=== PATIENT | male | born 1975 | race African-American/Black ===

== ENCOUNTER 2016-11-29 15:13 | Inpatient (IN) | payer MEDICARE, OTHER ==
[~2016-11-29] VITALS: Ht 170.2 cm; Wt 77.1 kg
[2016-11-29] MEDS ORDERED: Z GUARD REMEDY PASTE 57 GM TUBE TOP PRN (18:00)
--- NOTE | 2016-11-29 18:00 | NUR ---
pt received from [facility]. transported by EMT. received report from Emt. pt vital signs stable. pt was alert and oriented x3. NIHSS assessment. done. pt has severe weakness on left side of the body. pt came in with an abduction pillow. pt responds to conversations but at a slower pace. pt had no signs of acute distress. med recon done. pt assessed by Jaspal. will continue to monitor for distress.
[2016-11-29] MEDS ORDERED: LEVE500T20 PO (18:30)
[2016-11-29] MEDS ORDERED: METO25TA6 PO (18:30)
[2016-11-29] MEDS ORDERED: FLUD0.1T PO (18:30)
[2016-11-29] MEDS ORDERED: GABA-534 PO (18:30)
[2016-11-29] MEDS ORDERED: MAGN400T26 PO (18:30)
[2016-11-29] MEDS ORDERED: BACL10TA PO (18:30)
[2016-11-29] MEDS ORDERED: ZONI100C6 PO (18:30)
[2016-11-29] MEDS ORDERED: SERT100T12 PO (18:30)
[2016-11-29] MEDS ORDERED: PANT40TA4 PO (18:30)
[2016-11-29] MEDS ORDERED: CALC500T3 PO (18:30)
[2016-11-29] MEDS ORDERED: ENOX40DI9 SQ (18:53)
[2016-11-29] MEDS ORDERED: RISP0.5T20 PO (18:53)
[2016-11-29] MEDS ORDERED: ACET-2154 PO (18:53)
[2016-11-29] MEDS ORDERED: ZOLP5TAB8 PO (18:53)
[2016-11-29] MEDS ORDERED: MAGN30OR PO (18:53)
[2016-11-29] MEDS ORDERED: ATOR20TA PO (18:53)
[2016-11-29] MEDS ORDERED: MAG30ORA GT (18:53)
[2016-11-29] MEDS ORDERED: HYDR-552 PO (18:53)
--- NOTE | 2016-11-29 19:00 | NUR ---
Received report from COMFORT Lehman. Received patient sitting in bed. Patient is alert and verbally responsive. Response is a little delayed. Needs additional time, but able to hold conversation and make needs known. Denies any pain and discomfort at this time. No acute distress. No SOB. Patient is on room air. Patient s/p Right Hip ORIF. Dressing is dry and intact. No c/o pain at site. Left sided noted with severe weakness. Left lower extremity noted with slight non-pitting edema. Pedal pulse present on both extremities. Abductor pillow in place between legs. Educated pt. to keep pillow there at all times. Verbalizes understanding. SCD pumps on both extremities. Kept clean and dry. All needs attended to promptly. Call light within reach. Will continue to monitor.
[2016-11-29] MEDS ORDERED: HYDROCODONE/APAP 5-325MG TABLET PO ONE (19:23)
[2016-11-29] MEDS ORDERED: HYDROCODONE/APAP 5-325MG TABLET PO PRN (19:30)
[2016-11-29] MEDS ORDERED: ACETAMINOPHEN 325 MG TABLET PO PRN (19:30)
[2016-11-29 20:30] VITALS: BP 125/90
[2016-11-29] MEDS ORDERED: risperiDONE 0.5 MG TABLET PO SCH (21:00)
[2016-11-29] MEDS: GABAPENTIN 300 MG CAPSULE PO SCH (21:35)
[2016-11-29] MEDS: ATORVASTATIN 20 MG TABLET PO SCH (21:36)
[2016-11-29] MEDS: BACLOFEN 10 MG TABLET PO SCH (21:36)
[2016-11-29] MEDS: METOPROLOL TARTRATE 25 MG TABLET PO SCH (21:37)
[2016-11-29] MEDS: risperiDONE 0.25 MG TABLET PO SCH (21:38)
[2016-11-29] MEDS: LEVETIRACETAM 500 MG TABLET PO SCH (21:39)
--- NOTE | 2016-11-30 06:00 | NUR ---
Patient is awake at this time. Slept comfortably through out the night. Denies any pain and discomfort at this time. No acute distress. No SOB. Kept clean and dry. All needs attended to promptly. Call light within reach. Will continue to monitor.
[2016-11-30] MEDS: PANTOPRAZOLE SODIUM 40 MG TABLET.DR PO SCH (06:34)
--- NOTE | 2016-11-30 07:27 | NUR ---
Dressing changed. Cleansed wit normal saline, pat dry and applied dry dressing. Suture intact. No s/s of bleeding or swelling. No c/o pain and discomfort. No acute distress. All needs attended to promptly. Call light within reach. Will continue to monitor.
[2016-11-30 08:00] VITALS: BP 122/82
--- NOTE | 2016-11-30 08:00 | NUR ---
Pt alert and oriented and able to verbalize needs. AM care done. AM medication given. pt requested to get a multivitamin. SENIOR OFFICER informed and ordered mutivitamins 1 tab daily. Vitamin given to the patient, tolerating well. pt denies pain and discomfort. breathing equal and unlabored.
[2016-11-30 08:23] LABS: BASOPHILS % (AUTO) 0.3 % (0.0-2.0); EOSINOPHILS # (AUTO) 0.2 K/uL (0.0-0.7); EOSINOPHILS % (AUTO) 2.6 % (0.0-7.0); HEMATOCRIT 33.1 % (40-50); LYMPHOCYTES # (AUTO) 1.1 K/UL (0.8-4.8); LYMPHOCYTES % (AUTO) 17.8 % (20.5-51.5); MEAN CORPUSCULAR HEMOGLOBIN 32.1 UUG (27.0-31.0); MEAN CORPUSCULAR HGB CONC 36 g/dL (32.0-37.0); MEAN CORPUSCULAR VOLUME 88.9 FL (82.0-92.0); MONOCYTES # (AUTO) 0.5 K/UL (0.1-1.30); MONOCYTES % (AUTO) 7.3 % (0.0-11.0); NEUTROPHILS # (AUTO) 4.6 K/UL (1.8-8.9); PLATELET COUNT (AUTO) 141 K/UL (150-450); RED BLOOD CELL COUNT(AUTO) 3.72 MIL/UL (4.7-6.1); WHITE BLOOD COUNT (AUTO) 6.4 K/UL (4.0-11.2)
[2016-11-30] MEDS: ENOXAPARIN SODIUM 40 MG/0.4 ML DISP.SYRIN SQ SCH (08:24)
[2016-11-30] MEDS: SERTRALINE HCL 50 MG TABLET PO SCH (08:25)
[2016-11-30] MEDS: MAGNESIUM OXIDE 400 MG TABLET PO SCH ×2 (08:26→18:18)
[2016-11-30] MEDS: BACLOFEN 10 MG TABLET PO SCH ×4 (08:27→21:53)
[2016-11-30] MEDS: GABAPENTIN 300 MG CAPSULE PO SCH ×3 (08:27→17:02)
[2016-11-30] MEDS: LEVETIRACETAM 500 MG TABLET PO SCH ×2 (08:27→21:52)
[2016-11-30 08:30] LABS: CREATININE 1.1 mg/dL (0.6-1.3); MAGNESIUM 1.8 mg/dL (1.8-2.4); PHOSPHOROUS 2.1 mg/dL (2.5-4.9); POTASSIUM 3.3 mmol/L (3.5-5.1)
[2016-11-30] MEDS: METOPROLOL TARTRATE 25 MG TABLET PO SCH ×2 (08:31→21:54)
[2016-11-30] MEDS ORDERED: GABAPENTIN 300 MG CAPSULE PO SCH (09:00)
[2016-11-30] MEDS ORDERED: SERTRALINE HCL 100 MG TABLET PO SCH (09:00)
[2016-11-30] MEDS: FLUDROCORTISONE ACETATE 0.1 MG TABLET PO SCH ×2 (09:52→17:03)
[2016-11-30] MEDS: MULTIVITAMINS,THERAPEUTIC TABLET PO SCH (09:52)
--- NOTE | 2016-11-30 10:36 | NUR ---
Abnormal Labs Spoke with MD Osbrone regarding patient abnormal labs. No new order received.
[2016-11-30] MEDS ORDERED: POTASSIUM CHLORIDE 20 MEQ TAB.PRT.SR PO ONE (11:30)
--- NOTE | 2016-11-30 13:59 | NUR ---
Ip Network Architect SW met with patient at [facility] to assess pt needs and provide support. The patient is a 41 year old [place]ian male admitted for right hip fracture. The patient was laying in his bed during the assessment. He was calm and cooperative during the interview. The patient's mood was somewhat depressed with a flat affect. Per pt, he lives at [facility] [[address] [place] [id number] ] and has been living there for the past 3 years. The patient acknowledged his condition and the need for intervention. The patient stated that he fell and fractured his hip. The patient stated that he has strong social support from his girlfriend Gail Grullon . SW called patient's girlfriend however the phone was busy. SW will attempt to contact pt gf at a later time. Social history: The patient stated that he was born in [facility] and was raised in the [facility]. He stated that his parents both of natural causes when he was very young and that he was raised by his godmother. The patient has a high school diploma. 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 The patient has never been but has been in a relationship with his girlfriend for 6 years. He does not have any children. The patient stated that his goal is to be able to walk again after completing his treatment at [facility] and then return to his assisted living. SW engaged in active listening and provided supportive counseling during the interview to address patient's issues of loss due to his recent fall and inability to walk. SW will continue to address issues of loss related to recent fall. SW will encourage compliance with rehab goals. SW will be available as needed.
[2016-11-30] MEDS ORDERED: NEUTRA PHOS PACKET PO ONE (16:00)
[2016-11-30 16:02] VITALS: BP 125/83
--- NOTE | 2016-11-30 20:00 | NUR ---
Patient received resting comfortably in bed, no acute distress noted. Dressing noted to right hip, intact. Observed to be slow to process, although able to make needs known. No c/o pain. No acute distress noted. Bed in low and locked position, call light within reach.
[2016-11-30 21:08] VITALS: BP 121/93
[2016-11-30] MEDS: ATORVASTATIN 20 MG TABLET PO SCH (21:53)
[2016-11-30] MEDS: risperiDONE 0.25 MG TABLET PO SCH (21:53)
--- NOTE | 2016-11-30 23:00 | NUR ---
patient compliant with bedtime medications. Pt changed by staff. No acute distress noted. Will continue to monitor fro safety.
[2016-12-01] MEDS: PANTOPRAZOLE SODIUM 40 MG TABLET.DR PO SCH (06:39)
[2016-12-01 08:49] VITALS: BP 129/89
[2016-12-01] MEDS: MULTIVITAMINS,THERAPEUTIC TABLET PO SCH (09:07)
[2016-12-01] MEDS: BACLOFEN 10 MG TABLET PO SCH ×4 (09:07→20:42)
[2016-12-01] MEDS: GABAPENTIN 300 MG CAPSULE PO SCH ×3 (09:07→16:08)
[2016-12-01] MEDS: MAGNESIUM OXIDE 400 MG TABLET PO SCH ×2 (09:08→16:08)
[2016-12-01] MEDS: SERTRALINE HCL 50 MG TABLET PO SCH (09:08)
[2016-12-01] MEDS: LEVETIRACETAM 500 MG TABLET PO SCH ×2 (09:08→20:41)
[2016-12-01] MEDS: METOPROLOL TARTRATE 25 MG TABLET PO SCH ×2 (09:09→20:43)
[2016-12-01] MEDS: FLUDROCORTISONE ACETATE 0.1 MG TABLET PO SCH ×2 (09:12→16:08)
[2016-12-01] MEDS: ENOXAPARIN SODIUM 40 MG/0.4 ML DISP.SYRIN SQ SCH (09:12)
[2016-12-01 18:11] VITALS: BP 141/95
--- NOTE | 2016-12-01 19:30 | NUR ---
PT ALERT AND ORIENTED IN BED. NO DISTRESS NOTED. COMPLIANT WITH NURSING CARE. CLEAN AND DRY. TURNED AND REPOSITIONED. WILL CONTINUE TO MONITOR.
[2016-12-01 20:38] VITALS: BP 130/94
[2016-12-01] MEDS: ATORVASTATIN 20 MG TABLET PO SCH (20:41)
[2016-12-01] MEDS: ZOLPIDEM 5 MG TABLET PO PRN (20:42)
[2016-12-01] MEDS: risperiDONE 0.25 MG TABLET PO SCH (20:43)
[2016-12-02] MEDS: PANTOPRAZOLE SODIUM 40 MG TABLET.DR PO SCH (06:40)
--- NOTE | 2016-12-02 07:07 | NUR ---
PT RESTING IN BED. NO DISTRESS NOTED. NO SIGNIFICANT CHANGES THROUGHOUT THE NIGHT. TURNED AND REPOSITIONED Q2. CLEAN AND DRY. SAFETY MAINTAINED. CALL LIGHT WITHIN REACH.
[2016-12-02 08:00] VITALS: BP 120/86
[2016-12-02] MEDS: MULTIVITAMINS,THERAPEUTIC TABLET PO SCH (08:36)
[2016-12-02] MEDS: FLUDROCORTISONE ACETATE 0.1 MG TABLET PO SCH ×2 (08:38→17:30)
[2016-12-02] MEDS: GABAPENTIN 300 MG CAPSULE PO SCH ×3 (08:38→17:29)
[2016-12-02] MEDS: BACLOFEN 10 MG TABLET PO SCH ×4 (08:38→20:59)
[2016-12-02] MEDS: MAGNESIUM OXIDE 400 MG TABLET PO SCH ×2 (08:39→17:29)
[2016-12-02] MEDS: LEVETIRACETAM 500 MG TABLET PO SCH ×2 (08:39→20:58)
[2016-12-02] MEDS: SERTRALINE HCL 50 MG TABLET PO SCH (08:42)
[2016-12-02] MEDS: ENOXAPARIN SODIUM 40 MG/0.4 ML DISP.SYRIN SQ SCH (08:44)
[2016-12-02] MEDS: METOPROLOL TARTRATE 25 MG TABLET PO SCH ×2 (08:45→21:00)
--- NOTE | 2016-12-02 09:15 | NUR ---
RECEIVED PATIENT AWAKE IN BED. ALERT AND ORIENTED X4. NO S/S OF DISTRESS. PATIENT COMPLAINED OF HEADACHE. PRN PAIN MEDICATIONS GIVEN. TOLERATED THERAPY WELL. ENSURED SAFETY. CALL LIGHT WITHIN REACH
--- NOTE | 2016-12-02 12:10 | NUR ---
PATIENT BACK TO ROOM IN STABLE CONDITION,AWAKE, ALERT AND ORIENTED. NO COMPLAINTS OF PAIN OR DISCOMFORT. INSTRUCTED PATIENT TO MAINTAIN NPO STATUS UNTIL 22:00 TODAY. IV FLUID OF D5NS 75CC./HR. STARTED. IV SITE OVER LEFT WRIST. IV PATENT AND INFUSING WELL. Addendum: 12/02/16 at 1306 by TEODORO TINSLEY RN WRONG PATIENT FOR PATIENT LISSETTE CRAIG
--- NOTE | 2016-12-02 19:30 | NUR ---
Received patient awake, resting in bed with no s/s of distress. Denies pain at this time. Call light within reach. Will continue to monitor.
[2016-12-02 20:00] VITALS: BP 136/90
[2016-12-02] MEDS: ZOLPIDEM 5 MG TABLET PO PRN (20:59)
[2016-12-02] MEDS: ATORVASTATIN 20 MG TABLET PO SCH (20:59)
[2016-12-02] MEDS: risperiDONE 0.25 MG TABLET PO SCH (20:59)
[2016-12-03] MEDS: PANTOPRAZOLE SODIUM 40 MG TABLET.DR PO SCH (06:06)
--- NOTE | 2016-12-03 06:31 | NUR ---
Patient awake in bed, respirations even and unlabored. No complaints of pain during the shift. Due meds given. Needs attended. Dressing on incision site cleansed and changed. Kept clean and dry. Call light kept within reach. Frequent checks done. Endorsed accordingly.
[2016-12-03 08:00] VITALS: BP 130/94
--- NOTE | 2016-12-03 08:00 | NUR ---
RECEIVED PATIENT AWAKE IN BED. NO S/S OF DISTRESS NO COMPLAINTS OF PAIN AT THIS TIME. CALL LIGHT WITHIN REACH. WILL CONTINUE TO MONITOR.
[2016-12-03] MEDS: LEVETIRACETAM 500 MG TABLET PO SCH ×2 (08:56→21:58)
[2016-12-03] MEDS: BACLOFEN 10 MG TABLET PO SCH ×4 (08:56→21:59)
[2016-12-03] MEDS: GABAPENTIN 300 MG CAPSULE PO SCH ×3 (08:57→17:16)
[2016-12-03] MEDS: METOPROLOL TARTRATE 25 MG TABLET PO SCH ×2 (08:57→21:59)
[2016-12-03] MEDS: MAGNESIUM OXIDE 400 MG TABLET PO SCH ×2 (08:57→17:16)
[2016-12-03] MEDS: MULTIVITAMINS,THERAPEUTIC TABLET PO SCH (08:57)
[2016-12-03] MEDS: FLUDROCORTISONE ACETATE 0.1 MG TABLET PO SCH ×2 (08:58→17:16)
[2016-12-03] MEDS: SERTRALINE HCL 50 MG TABLET PO SCH (08:58)
[2016-12-03] MEDS: ENOXAPARIN SODIUM 40 MG/0.4 ML DISP.SYRIN SQ SCH (08:59)
--- NOTE | 2016-12-03 10:41 | NUR ---
TRANSFERRED PATIENT TO ROOM 105. ORIENTED TO ROOM SET-UP. TOLERATED THERAPY WELL. ENCOURAGED TO VERBALIZE NEEDS. NO COMPLAINTS OF DISCOMFORT AT THIS TIME.
[2016-12-03] MEDS: ZONISAMIDE 100 MG CAPSULE PO SCH (16:29)
--- NOTE | 2016-12-03 19:00 | NUR ---
Pt in bed, no distress noted. call light within reach.
[2016-12-03 20:57] VITALS: BP 133/90
[2016-12-03] MEDS: risperiDONE 0.25 MG TABLET PO SCH (21:58)
[2016-12-03] MEDS: ATORVASTATIN 20 MG TABLET PO SCH (21:58)
--- NOTE | 2016-12-03 23:09 | NUR ---
Received patient resting in bed with no s/s of distress. No complaints of pain at this time. Call light within reach. Will continue to monitor.
[2016-12-04] MEDS: PANTOPRAZOLE SODIUM 40 MG TABLET.DR PO SCH (06:13)
--- NOTE | 2016-12-04 06:53 | NUR ---
Patient went back to sleep after taking AM meds. Manifested a pleasant disposition. Incontinence care done. Kept clean, dry, comfortable. No s/s of distress. No complaints of pain. Call light kept within reach. Endorsed accordingly.
[2016-12-04 08:00] VITALS: BP 121/84
[2016-12-04] MEDS: MULTIVITAMINS,THERAPEUTIC TABLET PO SCH (08:31)
[2016-12-04] MEDS: LEVETIRACETAM 500 MG TABLET PO SCH ×2 (08:32→20:49)
[2016-12-04] MEDS: MAGNESIUM OXIDE 400 MG TABLET PO SCH ×2 (08:33→17:03)
[2016-12-04] MEDS: FLUDROCORTISONE ACETATE 0.1 MG TABLET PO SCH ×2 (08:34→17:02)
[2016-12-04] MEDS: CALCIUM CARBONATE 500 MG TABLET PO SCH (08:34)
[2016-12-04] MEDS: GABAPENTIN 300 MG CAPSULE PO SCH ×3 (08:34→17:12)
[2016-12-04] MEDS: BACLOFEN 10 MG TABLET PO SCH ×4 (08:34→20:47)
[2016-12-04] MEDS: METOPROLOL TARTRATE 25 MG TABLET PO SCH ×2 (08:35→20:48)
[2016-12-04] MEDS: SERTRALINE HCL 50 MG TABLET PO SCH (08:35)
[2016-12-04] MEDS: ZONISAMIDE 100 MG CAPSULE PO SCH (08:40)
[2016-12-04] MEDS: ENOXAPARIN SODIUM 40 MG/0.4 ML DISP.SYRIN SQ SCH (08:45)
[2016-12-04] MEDS ORDERED: ZONISAMIDE 100 MG CAPSULE PO SCH (09:00)
--- NOTE | 2016-12-04 10:01 | NUR ---
ST states that the patient refuses swallow eval. pt shows no complications during chief media officer. will continue to reassess for further complications.
--- NOTE | 2016-12-04 17:57 | NUR ---
pt had no acute distress during sfhit. pt took meds without complications. pt still refused evaluation for speech therapy. pt skin stayed intact. loc remained constant throughout shift. no changes on motor and sensory functions. vitals stable. pt had no bm during shift. . pt continued to work with PT and ot. no pertinent labs during shift. will endorse pt on continuing reassessment.
[2016-12-04] MEDS: ATORVASTATIN 20 MG TABLET PO SCH (20:47)
[2016-12-04] MEDS: risperiDONE 0.25 MG TABLET PO SCH (20:48)
[2016-12-04 21:50] VITALS: BP 117/79
[2016-12-05] MEDS: PANTOPRAZOLE SODIUM 40 MG TABLET.DR PO SCH (06:31)
--- NOTE | 2016-12-05 06:42 | NUR ---
Patient is awake and verbally responsive. Slept comfortably throughout the night. Denies any pain and discomfort at this time. No acute distress. No SOB. Kept clean and dry. AM medications given. SCD pump on throughout the night. Abductor pillow in place. All needs attended to promptly. Call light within reach. Will continue to monitor.
[2016-12-05 08:11] LABS: BASOPHILS % (AUTO) 0.7 % (0.0-2.0); EOSINOPHILS # (AUTO) 0.1 K/uL (0.0-0.7); EOSINOPHILS % (AUTO) 1.6 % (0.0-7.0); HEMATOCRIT 35.8 % (40-50); HEMOGLOBIN 12.7 G/DL (14.0-18.0); LYMPHOCYTES # (AUTO) 1.3 K/UL (0.8-4.8); LYMPHOCYTES % (AUTO) 18.6 % (20.5-51.5); MEAN CORPUSCULAR HEMOGLOBIN 31.8 UUG (27.0-31.0); MEAN CORPUSCULAR HGB CONC 36 g/dL (32.0-37.0); MEAN CORPUSCULAR VOLUME 89.7 FL (82.0-92.0); MONOCYTES # (AUTO) 0.3 K/UL (0.1-1.30); MONOCYTES % (AUTO) 4.4 % (0.0-11.0); NEUTROPHILS # (AUTO) 5.4 K/UL (1.8-8.9); NEUTROPHILS % (AUTO) 74.7 % (38.5-71.5); WHITE BLOOD COUNT (AUTO) 7.1 K/UL (4.0-11.2)
[2016-12-05 08:19] LABS: PLATELET COUNT (AUTO) 250 K/UL (150-450)
[2016-12-05 08:28] VITALS: BP 121/77
[2016-12-05] MEDS: CALCIUM CARBONATE 500 MG TABLET PO SCH (08:40)
[2016-12-05] MEDS: MULTIVITAMINS,THERAPEUTIC TABLET PO SCH (08:40)
[2016-12-05] MEDS: BACLOFEN 10 MG TABLET PO SCH ×2 (08:40→12:11)
[2016-12-05] MEDS: LEVETIRACETAM 500 MG TABLET PO SCH ×2 (08:41→21:37)
[2016-12-05] MEDS: MAGNESIUM OXIDE 400 MG TABLET PO SCH ×2 (08:41→17:21)
[2016-12-05] MEDS: SERTRALINE HCL 50 MG TABLET PO SCH (08:42)
[2016-12-05] MEDS: METOPROLOL TARTRATE 25 MG TABLET PO SCH ×2 (08:43→21:36)
[2016-12-05] MEDS: ZONISAMIDE 100 MG CAPSULE PO SCH (08:43)
[2016-12-05] MEDS: GABAPENTIN 300 MG CAPSULE PO SCH ×3 (08:43→17:21)
[2016-12-05] MEDS: FLUDROCORTISONE ACETATE 0.1 MG TABLET PO SCH ×2 (08:43→17:21)
[2016-12-05] MEDS: ENOXAPARIN SODIUM 40 MG/0.4 ML DISP.SYRIN SQ SCH (08:44)
[2016-12-05 09:39] LABS: BILIRUBIN,TOTAL 0.5 mg/dL (0.2-1.0); CREATININE 1.2 mg/dL (0.6-1.3); PHOSPHOROUS 3.4 mg/dL (2.5-4.9); POTASSIUM 3.8 mmol/L (3.5-5.1); TOTAL PROTEIN, SERUM 7.2 g/dL (6.4-8.2)
[2016-12-05] MEDS ORDERED: BISACODYL 10 MG SUPP.RECT RC PRN (10:45)
--- NOTE | 2016-12-05 16:24 | NUR ---
IDT MEETING 12/05/16
[2016-12-05] MEDS: BACLOFEN 20 MG TABLET PO SCH ×2 (17:56→21:37)
[2016-12-05] MEDS: DOCUSATE SODIUM 100 MG CAPSULE PO SCH (21:00)
[2016-12-05] MEDS: ATORVASTATIN 20 MG TABLET PO SCH (21:36)
[2016-12-05] MEDS: risperiDONE 0.25 MG TABLET PO SCH (21:37)
[2016-12-05] MEDS: ZOLPIDEM 5 MG TABLET PO PRN (21:41)
[2016-12-05 22:08] VITALS: BP 127/89
[2016-12-06] MEDS: PANTOPRAZOLE SODIUM 40 MG TABLET.DR PO SCH (06:33)
[2016-12-06] MEDS: BACLOFEN 20 MG TABLET PO SCH ×3 (06:33→21:04)
--- NOTE | 2016-12-06 07:10 | NUR ---
Patient is awake and verbally responsive. Able to make needs known. Slept comfortably throughout the night. No c/o pain and discomfort. No acute distress. No SOB. All needs attended to promptly. Call light within reach. Will continue to monitor.
[2016-12-06 08:13] VITALS: BP 125/82
[2016-12-06] MEDS: MULTIVITAMINS,THERAPEUTIC TABLET PO SCH (09:09)
[2016-12-06] MEDS: LEVETIRACETAM 500 MG TABLET PO SCH ×2 (09:10→21:06)
[2016-12-06] MEDS: SERTRALINE HCL 50 MG TABLET PO SCH (09:11)
[2016-12-06] MEDS: METOPROLOL TARTRATE 25 MG TABLET PO SCH ×2 (09:12→21:12)
[2016-12-06] MEDS: FLUDROCORTISONE ACETATE 0.1 MG TABLET PO SCH ×2 (09:13→17:33)
[2016-12-06] MEDS: MAGNESIUM OXIDE 400 MG TABLET PO SCH ×2 (09:13→17:33)
[2016-12-06] MEDS: CALCIUM CARBONATE 500 MG TABLET PO SCH (09:13)
[2016-12-06] MEDS: GABAPENTIN 300 MG CAPSULE PO SCH ×3 (09:13→17:33)
[2016-12-06] MEDS: ZONISAMIDE 100 MG CAPSULE PO SCH (09:14)
[2016-12-06] MEDS: ENOXAPARIN SODIUM 40 MG/0.4 ML DISP.SYRIN SQ SCH (09:14)
--- NOTE | 2016-12-06 10:16 | NUR ---
pt observed for signs of constipation. notified one day ago. ordered colace. pt refused colace last night. no bowel movement today. pt states that its because its a different environment and it takes him a while. will continue to monitor.
--- NOTE | 2016-12-06 16:30 | NUR ---
pt states that he went to the bathroom . pt hasnt had bm in two days. theater projectionist states that he did. will continue to monitor.
--- NOTE | 2016-12-06 18:30 | NUR ---
pt had no signs of impendinr stroke nor acute distress during shift. pt provided comfort measures. pt adehered ot medications during shift. pt requests his wheel chair from [facility]. pt had normal bm and voiding during shift. pt is still on max assist. pt tolerated Ot/PTvital signs within normal. pt had no complications. will endorse to continue monitoring for any distress.
--- NOTE | 2016-12-06 19:30 | NUR ---
RECEIVED PATIENT AWAKE,ALERT, AND ORIENTED X3.FOLLOWS COMMANDS WITHOUT DIFFICULTY. LEFT JUSTIN HX APPARENT. NO C/O PAIN OR RESPIRATORY DISTRESS AT THIS TIME. SPEECH IS CLEAR. ABLE TO MAKE NEEDS KNOWN. CALL LIGHT PLACED TO RIGHT SIDE OF PATIENT FOR EASIER ACCESS. INSTRUCTED PATIENT TO CALL FOR ANY NEEDS HE HAS. VERBALIZES UNDERSTANDING.
[2016-12-06] MEDS: ATORVASTATIN 20 MG TABLET PO SCH (21:04)
[2016-12-06] MEDS: DOCUSATE SODIUM 100 MG CAPSULE PO SCH (21:05)
[2016-12-06] MEDS: risperiDONE 0.25 MG TABLET PO SCH (21:05)
[2016-12-06 21:36] VITALS: BP 123/81
--- NOTE | 2016-12-07 06:03 | NUR ---
slept well this shift. comfortable without c/o pain. repositioned and kept clean and dry. right hip dressing clean and dry. call light within reach aat
[2016-12-07] MEDS: PANTOPRAZOLE SODIUM 40 MG TABLET.DR PO SCH (06:33)
[2016-12-07] MEDS: BACLOFEN 20 MG TABLET PO SCH ×3 (06:33→22:00)
[2016-12-07 07:00] VITALS: BP 121/80
[2016-12-07] MEDS: MAGNESIUM OXIDE 400 MG TABLET PO SCH ×2 (08:37→17:15)
[2016-12-07] MEDS: LEVETIRACETAM 500 MG TABLET PO SCH ×2 (08:37→21:00)
[2016-12-07] MEDS: METOPROLOL TARTRATE 25 MG TABLET PO SCH ×2 (08:38→20:36)
[2016-12-07] MEDS: FLUDROCORTISONE ACETATE 0.1 MG TABLET PO SCH ×2 (08:39→17:14)
[2016-12-07] MEDS: GABAPENTIN 300 MG CAPSULE PO SCH ×3 (08:39→17:14)
[2016-12-07] MEDS: MULTIVITAMINS,THERAPEUTIC TABLET PO SCH (08:39)
[2016-12-07] MEDS: CALCIUM CARBONATE 500 MG TABLET PO SCH (08:39)
[2016-12-07] MEDS: SERTRALINE HCL 50 MG TABLET PO SCH (08:39)
[2016-12-07] MEDS: ZONISAMIDE 100 MG CAPSULE PO SCH (08:40)
[2016-12-07] MEDS: ENOXAPARIN SODIUM 40 MG/0.4 ML DISP.SYRIN SQ SCH (08:41)
--- NOTE | 2016-12-07 11:58 | NUR ---
PT ENCOURAGED TO USE ABDUCTOR PILLOW. PT STATES HE DOESNT WANT TO USE IT. TOLD PT ABOUT THE RISKS. PT STILL REFUSED.
--- NOTE | 2016-12-07 19:30 | NUR ---
Patient watching on his bed. No complaints of pain, no s/s of distress. Call light within reach. Will continue to monitor.
--- NOTE | 2016-12-07 20:29 | NUR ---
pt does not complain of pain. main concern is bm but had bm durigng day. pt adhered to medication regimen. no signs of distress. participated in ot as directed. will continue to monitor for acute signs of distress or possible stroke
[2016-12-07] MEDS: DOCUSATE SODIUM 100 MG CAPSULE PO SCH (20:35)
[2016-12-07] MEDS: ATORVASTATIN 20 MG TABLET PO SCH (20:35)
[2016-12-07] MEDS: risperiDONE 0.25 MG TABLET PO SCH (20:36)
[2016-12-07 20:45] VITALS: BP 128/83
[2016-12-08] MEDS: BACLOFEN 20 MG TABLET PO SCH ×3 (06:52→21:57)
[2016-12-08] MEDS: PANTOPRAZOLE SODIUM 40 MG TABLET.DR PO SCH (06:52)
--- NOTE | 2016-12-08 07:00 | NUR ---
Patient went back to sleep after taking AM meds. Incontinence care done. Kept clean, dry, comfortable. No s/s of distress. Verbalizes absence of pain. Call light kept within reach. Needs attended. Frequent checks done. Endorsed accordingly.
[2016-12-08 08:00] VITALS: BP 124/77
--- NOTE | 2016-12-08 08:00 | NUR ---
RECEIVED PATIENT UP IN BED AWAKE, ALERT, VERBALLY RESPONSIVE, COHERENT, ABLE TO MAKE NEEDS KNOWN, NOT IN ANY FORM OF ACUTE DISTRESS. HE DENIES ANY PAIN OR DISCOMFORT AT THIS TIME. ENVIRONMENTAL CHECK FOR SAFETY DONE. ASSISTED TO HIS NEEDS. REMINDED TO USE CALL LIGHT FOR ASSISTANCE. CALL LIGHT PLACED WITHIN REACH.
[2016-12-08] MEDS: ZONISAMIDE 100 MG CAPSULE PO SCH (09:32)
[2016-12-08] MEDS: SERTRALINE HCL 50 MG TABLET PO SCH (09:33)
[2016-12-08] MEDS: MAGNESIUM OXIDE 400 MG TABLET PO SCH ×2 (09:34→17:40)
[2016-12-08] MEDS: GABAPENTIN 300 MG CAPSULE PO SCH ×3 (09:34→17:40)
[2016-12-08] MEDS: LEVETIRACETAM 500 MG TABLET PO SCH ×2 (09:35→21:57)
[2016-12-08] MEDS: CALCIUM CARBONATE 500 MG TABLET PO SCH (09:36)
[2016-12-08] MEDS: METOPROLOL TARTRATE 25 MG TABLET PO SCH ×2 (09:36→22:00)
[2016-12-08] MEDS: MULTIVITAMINS,THERAPEUTIC TABLET PO SCH (09:36)
[2016-12-08] MEDS: FLUDROCORTISONE ACETATE 0.1 MG TABLET PO SCH ×2 (09:37→17:40)
[2016-12-08] MEDS: ENOXAPARIN SODIUM 40 MG/0.4 ML DISP.SYRIN SQ SCH (09:41)
[2016-12-08 20:14] VITALS: BP 114/74
[2016-12-08] MEDS: ATORVASTATIN 20 MG TABLET PO SCH (21:58)
[2016-12-08] MEDS: risperiDONE 0.25 MG TABLET PO SCH (21:58)
[2016-12-08] MEDS: DOCUSATE SODIUM 100 MG CAPSULE PO SCH (21:59)
[2016-12-09] MEDS: PANTOPRAZOLE SODIUM 40 MG TABLET.DR PO SCH (06:38)
[2016-12-09] MEDS: BACLOFEN 20 MG TABLET PO SCH ×3 (06:38→21:54)
[2016-12-09 08:24] VITALS: BP 112/77
[2016-12-09] MEDS: SERTRALINE HCL 50 MG TABLET PO SCH (09:00)
[2016-12-09] MEDS: LEVETIRACETAM 500 MG TABLET PO SCH ×2 (09:01→21:54)
[2016-12-09] MEDS: MAGNESIUM OXIDE 400 MG TABLET PO SCH ×2 (09:02→17:06)
[2016-12-09] MEDS: CALCIUM CARBONATE 500 MG TABLET PO SCH (09:02)
[2016-12-09] MEDS: FLUDROCORTISONE ACETATE 0.1 MG TABLET PO SCH ×2 (09:02→17:06)
[2016-12-09] MEDS: GABAPENTIN 300 MG CAPSULE PO SCH ×3 (09:02→17:06)
[2016-12-09] MEDS: METOPROLOL TARTRATE 25 MG TABLET PO SCH ×2 (09:03→21:55)
[2016-12-09] MEDS: MULTIVITAMINS,THERAPEUTIC TABLET PO SCH (09:03)
[2016-12-09] MEDS: ZONISAMIDE 100 MG CAPSULE PO SCH (09:04)
[2016-12-09] MEDS: ENOXAPARIN SODIUM 40 MG/0.4 ML DISP.SYRIN SQ SCH (09:36)
--- NOTE | 2016-12-09 11:00 | NUR ---
PT SEEN. CHECKED ON WOUND. WOUND APPEARED TO BE RED. CLEANED WITH NS AND APPLIED BETADINE. PATCHED WITH NON ADHERENT DRESSING WITH CONTINUE TO MONITOR
[2016-12-09 21:33] VITALS: BP 106/74
[2016-12-09] MEDS: risperiDONE 0.25 MG TABLET PO SCH (21:53)
[2016-12-09] MEDS: ATORVASTATIN 20 MG TABLET PO SCH (21:54)
[2016-12-09] MEDS: DOCUSATE SODIUM 100 MG CAPSULE PO SCH (21:55)
[2016-12-10] MEDS: PANTOPRAZOLE SODIUM 40 MG TABLET.DR PO SCH (06:47)
[2016-12-10] MEDS: BACLOFEN 20 MG TABLET PO SCH ×3 (06:47→21:01)
[2016-12-10] MEDS: FLUDROCORTISONE ACETATE 0.1 MG TABLET PO SCH ×2 (08:06→17:49)
[2016-12-10] MEDS: CALCIUM CARBONATE 500 MG TABLET PO SCH (08:06)
[2016-12-10] MEDS: SERTRALINE HCL 50 MG TABLET PO SCH (08:06)
[2016-12-10] MEDS: GABAPENTIN 300 MG CAPSULE PO SCH ×3 (08:07→17:48)
[2016-12-10] MEDS: MAGNESIUM OXIDE 400 MG TABLET PO SCH ×2 (08:07→17:49)
[2016-12-10] MEDS: LEVETIRACETAM 500 MG TABLET PO SCH ×2 (08:08→20:56)
[2016-12-10] MEDS: METOPROLOL TARTRATE 25 MG TABLET PO SCH ×2 (08:11→20:58)
[2016-12-10] MEDS: ENOXAPARIN SODIUM 40 MG/0.4 ML DISP.SYRIN SQ SCH (08:15)
[2016-12-10] MEDS: ZONISAMIDE 100 MG CAPSULE PO SCH (08:17)
[2016-12-10 08:20] VITALS: BP 135/87
[2016-12-10] MEDS: MULTIVITAMINS,THERAPEUTIC TABLET PO SCH (08:23)
--- NOTE | 2016-12-10 08:58 | NUR ---
received report from Deborah MOYER. pt seen comfortable in bed. denies pain. provided comfort measures and medications. pt agreed to take the medications. no signs of distress.
--- NOTE | 2016-12-10 12:00 | NUR ---
RECEIVED PATIENT FROM ANDREW/RN. AWAKE ALERT AND ORIENTED. NO S/S OF DISTRESS. CALL LIGHT WITHIN REACH. SIDE RAILS UP X2
--- NOTE | 2016-12-10 18:32 | NUR ---
TOLERATED OCCUPATIONAL THERAPY WELL. NO COMPLAINTS OF PAIN DURING THE SHIFT. ATTENDED TO NEEDS PROMPTLY. MEDICATIONS TOLERATED WELL.
--- NOTE | 2016-12-10 19:30 | NUR ---
RECEIVED PATIENT AWAKE, ALERT AND ORIENTED X3, WATCHING THE BALL GAME . IN NAD AT THIS TIME. NO C/O PAIN OR RESPIRATORY DISTRESS. PM SNACK GIVEN. LEFT JUSTIN CVA HX APPARENT. LEFT HAND AND ARM APPEARING CONTRACTED. ROLLED WASH CLOTH BETWEEN FINGERS/ HAND.ATTEMPTED TO DO PROM BUT PATIENT IS REFUSING AT THIS TIME. INSTRUCTED TO CALL RN FOR ANY NEEDS OR REQUESTS. PATIENT VWERBALIZES UNDERSTANDING. CALL LIGHT WITHIN REACH AT RIGHT SIDE OF PATIENT FOR EASIER ACCESS.
[2016-12-10] MEDS: DOCUSATE SODIUM 100 MG CAPSULE PO SCH (20:56)
[2016-12-10] MEDS: risperiDONE 0.25 MG TABLET PO SCH (20:58)
[2016-12-10] MEDS: ATORVASTATIN 20 MG TABLET PO SCH (21:01)
[2016-12-10 22:02] VITALS: BP 129/89
--- NOTE | 2016-12-11 06:00 | NUR ---
SLEPT WELL LAST NIGHT. KEPT CLEAN AND DRY.CSM ADEQUATE TO RIGHT TOES/FEET.NO NEW SKIN ISSUES.NO C/O PAIN OR DISCOMFORT.RESTING COMFORTABLY. APPEARS IN NAD AT THIS TIME. CALL LIGHT WITHIN REACH.
[2016-12-11] MEDS: BACLOFEN 20 MG TABLET PO SCH ×3 (06:08→23:11)
[2016-12-11 06:39] VITALS: BP 122/80
[2016-12-11] MEDS: PANTOPRAZOLE SODIUM 40 MG TABLET.DR PO SCH (06:49)
[2016-12-11 08:00] VITALS: BP 115/79
[2016-12-11] MEDS: CALCIUM CARBONATE 500 MG TABLET PO SCH (08:14)
[2016-12-11] MEDS: SERTRALINE HCL 50 MG TABLET PO SCH (08:15)
[2016-12-11] MEDS: LEVETIRACETAM 500 MG TABLET PO SCH ×2 (08:15→20:53)
[2016-12-11] MEDS: GABAPENTIN 300 MG CAPSULE PO SCH ×3 (08:16→17:16)
[2016-12-11] MEDS: FLUDROCORTISONE ACETATE 0.1 MG TABLET PO SCH ×2 (08:16→17:16)
[2016-12-11] MEDS: MAGNESIUM OXIDE 400 MG TABLET PO SCH ×2 (08:16→17:16)
[2016-12-11] MEDS: ZONISAMIDE 100 MG CAPSULE PO SCH (08:20)
[2016-12-11] MEDS: MULTIVITAMINS,THERAPEUTIC TABLET PO SCH (08:21)
[2016-12-11] MEDS: METOPROLOL TARTRATE 25 MG TABLET PO SCH ×2 (08:27→20:54)
[2016-12-11] MEDS: ENOXAPARIN SODIUM 40 MG/0.4 ML DISP.SYRIN SQ SCH (11:17)
--- NOTE | 2016-12-11 18:32 | NUR ---
checked surgical site. wound is red and with possible exudate. notified Esthela Inside Meter Tester. changed the dressing. applied mepilex with hydrogel and put surgical dressing on top to keep intact. will follow up with COIL WINDER HAND for recommendations.
--- NOTE | 2016-12-11 18:59 | NUR ---
HVAC SERVICES PROFESSIONAL recommended CBC and CMP. picture taken and put in chart. will continue to wait for results. pt adhered to medication regimen and therapy. pt had no complaints of pain. pt provided comfort measures. no signs of acute distress. vitals within normal limits. will endorse further instructions for night club manager nurse.
--- NOTE | 2016-12-11 19:00 | NUR ---
Received report from COMFORT escalera. Pt currently asleep, breathing normally.
[2016-12-11 19:04] LABS: BASOPHILS % (AUTO) 0.3 % (0.0-2.0); EOSINOPHILS # (AUTO) 0.1 K/uL (0.0-0.7); EOSINOPHILS % (AUTO) 1.6 % (0.0-7.0); HEMATOCRIT 36.4 % (40-50); HEMOGLOBIN 12.4 G/DL (14.0-18.0); LYMPHOCYTES # (AUTO) 1.8 K/UL (0.8-4.8); LYMPHOCYTES % (AUTO) 23.4 % (20.5-51.5); MEAN CORPUSCULAR HEMOGLOBIN 30.3 UUG (27.0-31.0); MEAN CORPUSCULAR HGB CONC 34 g/dL (32.0-37.0); MEAN CORPUSCULAR VOLUME 89.1 FL (82.0-92.0); MONOCYTES # (AUTO) 0.4 K/UL (0.1-1.30); MONOCYTES % (AUTO) 5.2 % (0.0-11.0); NEUTROPHILS # (AUTO) 5.5 K/UL (1.8-8.9); NEUTROPHILS % (AUTO) 69.5 % (38.5-71.5); PLATELET COUNT (AUTO) 311 K/UL (150-450); RED BLOOD CELL COUNT(AUTO) 4.09 MIL/UL (4.7-6.1); WHITE BLOOD COUNT (AUTO) 7.8 K/UL (4.0-11.2)
[2016-12-11 19:26] LABS: BILIRUBIN,TOTAL 0.3 mg/dL (0.2-1.0); CREATININE 1.4 mg/dL (0.6-1.3); POTASSIUM 3.7 mmol/L (3.5-5.1); TOTAL PROTEIN, SERUM 7.2 g/dL (6.4-8.2)
--- NOTE | 2016-12-11 20:00 | NUR ---
Seen patient asleep, easily awakened,assessment done including pain, pt stated no pain. Dressing at rt hip clean and dry, however it reddish pink in color and mildly warm to touch. Pulses palpable at left pedal, mildly faint at left foot.
[2016-12-11] MEDS: DOCUSATE SODIUM 100 MG CAPSULE PO SCH (20:52)
[2016-12-11] MEDS: ATORVASTATIN 20 MG TABLET PO SCH (20:52)
[2016-12-11] MEDS: risperiDONE 0.25 MG TABLET PO SCH (20:52)
--- NOTE | 2016-12-11 21:00 | NUR ---
Meds given as prescribed.
[2016-12-11 21:30] VITALS: BP 122/62
--- NOTE | 2016-12-11 22:30 | NUR ---
Bedbath rendered, changed dressing at right hip, cleansed the site w/ betadine, covered w/ sterile mepilex and secured w/ nonadhesive dressing. CDI.No oozing drainage noted neither distinct odor noted. Turned and repositioned pt. Incontinent of urine, changed diaper and kept it dry.Continue on SCD's at bilateral legs.
--- NOTE | 2016-12-12 | NUR ---
Resting comfortably, breathing normally.
--- NOTE | 2016-12-12 05:00 | NUR ---
Resting/sleeping well, easily awakened. Denies any discomfort.
[2016-12-12] MEDS: BACLOFEN 20 MG TABLET PO SCH ×3 (06:25→21:03)
[2016-12-12] MEDS: PANTOPRAZOLE SODIUM 40 MG TABLET.DR PO SCH (06:25)
[2016-12-12 07:06] LABS: BASOPHILS % (AUTO) 0.5 % (0.0-2.0); EOSINOPHILS # (AUTO) 0.1 K/uL (0.0-0.7); EOSINOPHILS % (AUTO) 2.6 % (0.0-7.0); HEMATOCRIT 36.2 % (40-50); HEMOGLOBIN 12.5 G/DL (14.0-18.0); LYMPHOCYTES # (AUTO) 1.5 K/UL (0.8-4.8); LYMPHOCYTES % (AUTO) 29.6 % (20.5-51.5); MEAN CORPUSCULAR HEMOGLOBIN 30.6 UUG (27.0-31.0); MEAN CORPUSCULAR HGB CONC 35 g/dL (32.0-37.0); MEAN CORPUSCULAR VOLUME 88.8 FL (82.0-92.0); MONOCYTES # (AUTO) 0.2 K/UL (0.1-1.30); MONOCYTES % (AUTO) 4.4 % (0.0-11.0); NEUTROPHILS # (AUTO) 3.2 K/UL (1.8-8.9); NEUTROPHILS % (AUTO) 62.9 % (38.5-71.5); PLATELET COUNT (AUTO) 307 K/UL (150-450); RED BLOOD CELL COUNT(AUTO) 4.07 MIL/UL (4.7-6.1)
--- NOTE | 2016-12-12 07:15 | NUR ---
Report to COMFORT Lehman
[2016-12-12 07:35] LABS: MAGNESIUM 2.2 mg/dL (1.8-2.4); PHOSPHOROUS 3.2 mg/dL (2.5-4.9)
[2016-12-12 07:59] LABS: CREATININE 1.3 mg/dL (0.6-1.3); POTASSIUM 3.7 mmol/L (3.5-5.1)
[2016-12-12 08:00] VITALS: BP 111/73
[2016-12-12] MEDS: LEVETIRACETAM 500 MG TABLET PO SCH ×2 (09:14→20:56)
[2016-12-12] MEDS: MULTIVITAMINS,THERAPEUTIC TABLET PO SCH (09:15)
[2016-12-12] MEDS: SERTRALINE HCL 50 MG TABLET PO SCH (09:15)
[2016-12-12] MEDS: CALCIUM CARBONATE 500 MG TABLET PO SCH (09:15)
[2016-12-12] MEDS: FLUDROCORTISONE ACETATE 0.1 MG TABLET PO SCH ×2 (09:16→16:56)
[2016-12-12] MEDS: GABAPENTIN 300 MG CAPSULE PO SCH ×3 (09:16→16:56)
[2016-12-12] MEDS: ZONISAMIDE 100 MG CAPSULE PO SCH (09:16)
[2016-12-12] MEDS: METOPROLOL TARTRATE 25 MG TABLET PO SCH ×2 (09:16→20:55)
[2016-12-12] MEDS: MAGNESIUM OXIDE 400 MG TABLET PO SCH ×2 (09:16→16:56)
[2016-12-12] MEDS: ENOXAPARIN SODIUM 40 MG/0.4 ML DISP.SYRIN SQ SCH (09:22)
--- NOTE | 2016-12-12 15:01 | NUR ---
idt meeting 12/12/16
--- NOTE | 2016-12-12 15:24 | NUR ---
MONI RUIZ EVALUATED PATIENT WOUND AT RIGHT HIP. WILL ORDER BACITRACIN TO SITE.
[2016-12-12] MEDS: BACITRACIN/POLYMYXIN B OINT 15 GM TUBE TOP SCH ×2 (15:30→20:57)
--- NOTE | 2016-12-12 19:01 | NUR ---
PT HAD WOUND SEEN BY DOCTOR MALVIN AND TERESA kaplan. teresa kaplan ordered BACTICARIn. changed dressing and applied on wound. will continue to monitor for complications.
--- NOTE | 2016-12-12 19:30 | NUR ---
Received report from COMFORT Lehman. Received patient sitting up in bed. Alert, oriented and verbally responsive. Able to make needs known. Denies any pain and discomfort at this time. No acute distress. No SOB. On room air. Dressing site kept clean, dry and intact. Kept clean and dry. All needs attended to promptly. Call light within reach. Will continue to monitor.
[2016-12-12 20:03] VITALS: BP 118/84
[2016-12-12] MEDS: ATORVASTATIN 20 MG TABLET PO SCH (20:54)
[2016-12-12] MEDS: DOCUSATE SODIUM 100 MG CAPSULE PO SCH (20:54)
[2016-12-12] MEDS: risperiDONE 0.25 MG TABLET PO SCH (20:55)
[2016-12-12] MEDS: ZOLPIDEM 5 MG TABLET PO PRN (21:01)
[2016-12-13] MEDS: BACLOFEN 20 MG TABLET PO SCH ×3 (06:36→21:23)
[2016-12-13] MEDS: PANTOPRAZOLE SODIUM 40 MG TABLET.DR PO SCH (06:36)
--- NOTE | 2016-12-13 06:38 | NUR ---
Patient is awake and verbally responsive. No c/o pain and discomfort. No acute distress. No SOB. Patient kept clean and dry. AM meds given. All needs attended to promptly. Call light within reach. Will continue to monitor.
[2016-12-13 07:50] VITALS: BP 127/88
--- NOTE | 2016-12-13 08:30 | NUR ---
Received from cage shift manager, awake, alert and oriented x4. No complaints of pain or discomfort at this time. No s/s of distress. Call light within reach. Tolerated breakfast well. Hand splint placement over left hand demonstrated by ANN MARIE Ramirez.
[2016-12-13] MEDS: ENOXAPARIN SODIUM 40 MG/0.4 ML DISP.SYRIN SQ SCH (09:21)
[2016-12-13] MEDS: MULTIVITAMINS,THERAPEUTIC TABLET PO SCH (09:22)
[2016-12-13] MEDS: METOPROLOL TARTRATE 25 MG TABLET PO SCH ×2 (09:24→21:23)
[2016-12-13] MEDS: LEVETIRACETAM 500 MG TABLET PO SCH ×2 (09:25→21:23)
[2016-12-13] MEDS: MAGNESIUM OXIDE 400 MG TABLET PO SCH ×2 (09:25→17:31)
[2016-12-13] MEDS: CALCIUM CARBONATE 500 MG TABLET PO SCH (09:25)
[2016-12-13] MEDS: GABAPENTIN 300 MG CAPSULE PO SCH ×3 (09:25→17:31)
[2016-12-13] MEDS: SERTRALINE HCL 50 MG TABLET PO SCH (09:26)
[2016-12-13] MEDS: BACITRACIN/POLYMYXIN B OINT 15 GM TUBE TOP SCH ×2 (09:27→21:30)
[2016-12-13] MEDS: ZONISAMIDE 100 MG CAPSULE PO SCH (09:27)
[2016-12-13] MEDS: FLUDROCORTISONE ACETATE 0.1 MG TABLET PO SCH ×2 (09:34→17:31)
--- NOTE | 2016-12-13 16:00 | NUR ---
Tolerated therapy well. No complaints of pain. Patient is informed of discharge tomorrow. Ensured safety.
--- NOTE | 2016-12-13 19:30 | NUR ---
Patient in room A/ox3 with no distress noted. Dressing on right hip clean and intact. Provide comfort and safety measures
[2016-12-13 20:22] VITALS: BP 119/81
[2016-12-13] MEDS: ATORVASTATIN 20 MG TABLET PO SCH (21:22)
[2016-12-13] MEDS: DOCUSATE SODIUM 100 MG CAPSULE PO SCH (21:22)
[2016-12-13] MEDS: risperiDONE 0.25 MG TABLET PO SCH (21:27)
[2016-12-14] MEDS: PANTOPRAZOLE SODIUM 40 MG TABLET.DR PO SCH (05:51)
[2016-12-14] MEDS: BACLOFEN 20 MG TABLET PO SCH ×2 (05:51→13:08)
[2016-12-14 08:00] VITALS: BP 123/79
[2016-12-14] MEDS: MULTIVITAMINS,THERAPEUTIC TABLET PO SCH (08:58)
[2016-12-14] MEDS: MAGNESIUM OXIDE 400 MG TABLET PO SCH (08:58)
[2016-12-14] MEDS: LEVETIRACETAM 500 MG TABLET PO SCH (08:58)
[2016-12-14] MEDS: GABAPENTIN 300 MG CAPSULE PO SCH ×2 (08:58→13:08)
[2016-12-14] MEDS: CALCIUM CARBONATE 500 MG TABLET PO SCH (08:58)
[2016-12-14] MEDS: FLUDROCORTISONE ACETATE 0.1 MG TABLET PO SCH (08:59)
[2016-12-14] MEDS: SERTRALINE HCL 50 MG TABLET PO SCH (08:59)
[2016-12-14 09:00] VITALS: BP 129/79
[2016-12-14] MEDS: METOPROLOL TARTRATE 25 MG TABLET PO SCH (09:00)
[2016-12-14] MEDS: BACITRACIN/POLYMYXIN B OINT 15 GM TUBE TOP SCH (09:01)
[2016-12-14] MEDS: ENOXAPARIN SODIUM 40 MG/0.4 ML DISP.SYRIN SQ SCH (09:01)
[2016-12-14] MEDS: ZONISAMIDE 100 MG CAPSULE PO SCH (09:02)
[2016-12-14] MEDS ORDERED: SERT50TA12 PO (11:48)
[2016-12-14] MEDS ORDERED: MULT-24 PO (11:48)
[2016-12-14] MEDS ORDERED: FLUD0.1T3 PO (11:48)
[2016-12-14] MEDS ORDERED: ENOX40DI SQ (11:48)
[2016-12-14] MEDS ORDERED: METO25TA6 PO (11:48)
[2016-12-14] MEDS ORDERED: BACL20TA PO (11:48)
[2016-12-14] MEDS ORDERED: GABA-534 PO (11:48)
[2016-12-14] MEDS ORDERED: BACI15OI3 TOP (11:48)
[2016-12-14] MEDS ORDERED: CALC500T55 PO (11:48)
[2016-12-14] MEDS ORDERED: DOCU100C36 PO (11:48)
[2016-12-14] MEDS ORDERED: ZONI100C42 PO (11:48)
[2016-12-14] MEDS ORDERED: LEVE500T9 PO (11:48)
[2016-12-14] MEDS ORDERED: PANT40TA2 PO (11:48)
[2016-12-14] MEDS ORDERED: RISP0.253 PO (11:48)
[2016-12-14] MEDS ORDERED: ATOR20TA PO (11:48)
--- NOTE | 2016-12-14 14:00 | NUR ---
Received order from dr. Shay discharge to SNF ([facility]). Order carried out. Patient made aware and agreeable. Notified PROTECTION MGR Esthela Sen and PROTECTION MGR did medication reconciliation.
--- NOTE | 2016-12-14 15:40 | NUR ---
Report given to Sasha MOYER from [facility] regarding patient's discharge.
--- NOTE | 2016-12-14 18:23 | NUR ---
PT DISCHARGED WITH AMBULANCE TO snf. PT PROVIDED WITH INFORMATION REGARDING snf facility and education towards smoking cessation diet and VTE prophylaxis. ot verbalizes understanding of the place and schedule with follow with his primary doctor. pt provided copies of his care during his stay. pt provided wound care and pictures were taken. belongings and medications were reconciled with the patient. pt left with the splint and provided education regarding the device. pt left with vitals wnl. pt shows no signs of acute distress.
== END 2016-12-14 16:30 | DRG 559 ==
PROVIDERS: ADMIT Physical Medicine & Rehabilitation Pain Medicine; ATTEND Physical Medicine & Rehabilitation Pain Medicine
DX: S72.001D Fracture of unspecified part of neck of right femur, subsequent encounter for closed fracture with routine healing (principal); R53.2 Functional quadriplegia; G93.41 Metabolic encephalopathy; I69.354 Hemiplegia and hemiparesis following cerebral infarction affecting left non-dominant side; D68.59 Other primary thrombophilia; Z96.641 Presence of right artificial hip joint; W06.XXXD Fall from bed, subsequent encounter; I10 Essential (primary) hypertension; G40.909 Epilepsy, unspecified, not intractable, without status epilepticus; E78.5 Hyperlipidemia, unspecified; F32.9 Major depressive disorder, single episode, unspecified; D72.89 Other specified disorders of white blood cells; D64.9 Anemia, unspecified; D69.6 Thrombocytopenia, unspecified; E83.39 Other disorders of phosphorus metabolism; E87.6 Hypokalemia; G62.9 Polyneuropathy, unspecified; G89.29 Other chronic pain; I95.1 Orthostatic hypotension; R25.2 Cramp and spasm
CPT/HCPCS: 36415; 83735; 84100; 85025; 92523; 92610; 97110; 97112; 97116; 97161; 97165; 97530; 97535; A4217; A4663; J1650; J8499